=== PATIENT | female | born 1970 | race Two or more races ===

== ENCOUNTER 2021-07-23 07:54 | Emergency (ER) | payer MEDICAID, OTHER ==
[~2021-07-23] VITALS: Ht 160 cm; Wt 65.8 kg
[2021-07-23 08:44] VITALS: BP 151/82
[2021-07-23] MEDS ORDERED: CEFI400C PO (09:18)
[2021-07-23] MEDS ORDERED: ACET-1158 PO (09:18)
[2021-07-23] MEDS ORDERED: CLIN300C8 PO (09:18)
== END 2021-07-23 09:27 | disposition home or self-care (01) ==
LOC: ER 07:54
DX: N75.1 Abscess of Bartholin's gland (principal); Z79.899 Other long term (current) drug therapy